=== PATIENT | male | born 1985 | race African-American/Black ===

== ENCOUNTER 2024-12-19 00:28 | Emergency (ER) | payer SELFPAY ==
[~2024-12-19] VITALS: Ht 165.1 cm; Wt 76.3 kg
[2024-12-19 01:34] VITALS: O2SAT 99
[2024-12-19] MEDS: LIDOCAINE HCL 1% 20ML VIAL INFIL ONE (03:15)
[2024-12-19 03:50] VITALS: TEMP 36.8
[2024-12-19] MEDS: KETOROLAC 15MG/ML VIAL IM ONE (03:53)
[2024-12-19] MEDS: TETANUS, DIPHTHERIA, PERTUSSIS VAC/PF 0.5ML (>10YR OLD) IM ONE (03:54)
[2024-12-19] MEDS ORDERED: NAPR-1176 MT (05:06)
[2024-12-19 05:22] VITALS: BP 123/79; PULSE 61; RESP 13; O2SAT 100
== END 2024-12-19 05:26 | disposition home or self-care (01) ==
LOC: ER 00:46
DX: S01.512A Laceration without foreign body of oral cavity, initial encounter (principal); S01.511A Laceration without foreign body of lip, initial encounter; W50.1XXA Accidental kick by another person, initial encounter; Y93.6A Activity, physical games generally associated with school recess, summer camp and children; Y93.89 Activity, other specified; Y92.89 Other specified places as the place of occurrence of the external cause; Y99.8 Other external cause status
CPT/HCPCS: 90715; 12013; 90471; 96372; 99284; J1885; J2003; Z7610